=== PATIENT | female | born 1990 ===

== ENCOUNTER → 2017-11-19 | Outpatient (CLI) | payer OTHER ==
--- NOTE | 2017-11-19 14:45 | RAD ---
EXAM: Soft tissue ultrasound left axilla. HISTORY: Enlarged lymph nodes. COMPARISON: None. FINDINGS: Sonography of the left axilla was performed. This reveals multiple normal appearing lymph nodes. The largest measures 2.8 x 1.9 x 1.2 cm, but has a large fatty hilus and a very thin cortex. Another normal-appearing node measures 1.7 x 0.8 cm. Multiple smaller nodes are seen on the left. Images of the right exam were obtained for comparison. This also demonstrates normal-appearing lymph nodes with prominent fatty santhosh. The largest measures 1.8 x 0.9 cm. IMPRESSION: 1. Normal appearing bilateral axillary lymph nodes. No suspicious lymph nodes or other masses are identified. Recommend ongoing clinical follow-up of palpable foci.
== END | disposition home or self-care (01) ==
LOC: US 09:24
PROVIDERS: ATTEND Physician Assistant
DX: R59.0 Localized enlarged lymph nodes (principal)
CPT/HCPCS: 76881

== ENCOUNTER → 2018-02-17 | Outpatient (CLI) | payer OTHER ==
[~2018-02-17] MED LIST: BUPIVACAINE MPF 0.25% 10 ML VIAL. ONE; LIDOCAINE 1% PF 30 ML VIAL. ONE
== END ==
LOC: SURG 11:08
PROVIDERS: ATTEND Anesthesiology Pain Medicine
DX: M47.816 Spondylosis without myelopathy or radiculopathy, lumbar region (principal); G89.29 Other chronic pain; Z72.0 Tobacco use; Z72.89 Other problems related to lifestyle; Z87.39 Personal history of other diseases of the musculoskeletal system and connective tissue; Z98.890 Other specified postprocedural states; Z88.0 Allergy status to penicillin
CPT/HCPCS: 64493; 64494; J2001; J3490

== ENCOUNTER → 2018-06-30 | Outpatient (CLI) | payer OTHER | END | disposition home or self-care (01) | LOC: SURG 14:49 | PROVIDERS: ATTEND Anesthesiology Pain Medicine | DX: M47.22 Other spondylosis with radiculopathy, cervical region (principal); M47.816 Spondylosis without myelopathy or radiculopathy, lumbar region; G89.4 Chronic pain syndrome; M19.90 Unspecified osteoarthritis, unspecified site | CPT/HCPCS: 99214 ==